=== PATIENT | male | born 1950 | race Caucasian/White ===

== ENCOUNTER 2023-02-10 14:27 | Observation (INO) | payer OTHER ==
[2023-02-10 15:05] LABS: Hematocrit 28.4 % (39.6-49.0); Lymphocytes % 39.5 % (15.3-44.8); MCV 76.9 fL (80-100); Platelets 98 thou/uL (152-406); RBC Red Blood Cell Count 3.69 M/uL (4.33-5.43)
[2023-02-10 15:06] LABS: Anisocytosis 1+; Blood Morphology Comment NOTED (NOT SEEN); Platelet Estimate DECR; White Blood Cell Scan OK (OK)
[2023-02-10 15:08] LABS: Protime INR 1.12
[2023-02-10 15:30] LABS: Albumin 2.7 g/dL (3.4-5.0); Bilirubin Direct 0.1 mg/dL (0-0.2); Bilirubin Indirect, Calculated 0.1 mg/dL (0.2-0.8); Bilirubin Total 0.2 mg/dL (0.2-1.0); Magnesium 1.7 mg/dL (1.6-2.4); Protein, Total 6.3 g/dL (6.4-8.2); Troponin High Sensitivity 6.8 pg/mL (<58.9)
--- NOTE | 2023-02-10 16:16 | RAD REPORT ---
EXAM DESCRIPTION: CT - Head Brain Wo Cont - 02/10/2023 3:56 pm CLINICAL HISTORY: CONFUSED COMPARISON: No comparisons TECHNIQUE: Noncontrast head CT images were obtained without IV contrast. Multiplanar reformats were generated and reviewed. All CT scans are performed using dose optimization technique as appropriate and may include automated exposure control or mA/KV adjustment according to patient size. FINDINGS: No intracranial hemorrhage, mass, or edema. Midline structures are unremarkable. Moderate to advanced diffuse parenchymal volume loss with proportionate prominence of the ventricles and sulci. Chi-white matter differentiation is preserved, without evidence of acute infarct. No abnormal extra- axial fluid collections. Mastoid air cells and visualized portions of the paranasal sinuses are clear. No acute bony findings. IMPRESSION: No evidence of an acute intracranial process. Moderate to advanced diffuse parenchymal volume loss.
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
--- NOTE | 2023-02-10 17:02 | ER ---
Nurse's Notes [facility] Name: Adeel Joy Age: 72 yrs Sex: Male : 1950 Arrival Date: 02/10/2023 Time: 14:27 Bed 3 Private MD: Diagnosis: Altered mental status, bradycardia, vascular disease left lower extremity Presentation: 02/10 14:30 Chief complaint: EMS states: toned out to [facility] for possible blot clot in left ld1 leg, altered mental status. Coronavirus screen: At this time, the client does not indicate any symptoms associated with coronavirus-19. Ebola Screen: No symptoms or risks identified at this time. Initial Sepsis Screen: Does the patient meet any 2 criteria? No. Patient's initial sepsis screen is negative. Does the patient have a suspected source of infection? No. Patient's initial sepsis screen is negative. Risk Assessment: Do you want to hurt yourself or someone else? Patient reports no desire to harm self or others. Onset of symptoms was February 10, 2023. 14:30 Method Of Arrival: [place] [facility] [place]1 14:30 Acuity: MARCO A 3 ld1 20:[address] Buitrago contacted regarding patient bradycardia diagnosis by Dr Juliano Buitrago kl agrees to see patient Dr Palomo notified. Triage Assessment: 14:31 General: Appears in no apparent distress. comfortable, Behavior is calm, appropriate ld1 for age, agitated. Pain: Denies pain. Pain: Unable to use pain scale. Does not appear to understand pain scale. EENT: No signs and/or symptoms were reported regarding the EENT system. Neuro: Level of Consciousness is awake, alert, obeys commands, Oriented to person, place, time, situation. Cardiovascular: Capillary refill < 3 seconds Patient's skin is warm and dry. Rhythm is sinus bradycardia. Respiratory: Airway is patent Respiratory effort is even, unlabored. GI: Abdomen is flat, non-distended. : No signs and/or symptoms were reported regarding the genitourinary system. Derm: Wound noted left leg. Musculoskeletal: No signs and/or symptoms reported regarding the musculoskeletal system. Historical: - Allergies: 14:31 No Known Allergies; ld1 - Home Meds: 14:31 Depakote Sprinkles 125 mg Oral Capsule, Delayed Release Sprinkle 6 caps every 12 hours ld1 [Active]; donepezil 5 mg oral tablet 1 tab every day at bedtime [Active]; melatonin 10 mg Oral tablet 1 tab once daily at bedtime [Active]; sertraline 100 mg oral tablet 1 tab twice a day [Active]; trazodone 50 mg Oral tablet 0.5 tabs [Active]; - PMHx: 14:31 Dementia; Osteoarthritis; Cellulitis; Hypertensive disorder; embolism; insomnia; ld1 - Immunization history:: Adult Immunizations up to date. - Social history:: Smoking status: Patient reports the use of cigarette tobacco products, Patient/guardian denies using alcohol. Screenin:38 [facility] ED Fall Risk Assessment (Adult) History of falling in the last 3 months, ld1 including since admission No falls in past 3 months (0 pts). Abuse screen: Denies threats or abuse. Denies injuries from another. Nutritional screening: No deficits noted. Tuberculosis screening: No symptoms or risk factors identified. Assessment: 14:38 Reassessment: See triage assessment. ld1 15:26 Reassessment: Patient appears in no apparent distress at this time. Patient and/or tm6 family updated on plan of care and expected duration. Pain level reassessed. 16:35 Reassessment: Patient appears in no apparent distress at this time. Patient and/or tm6 family updated on plan of care and expected duration. Pain level reassessed. General: Appears in no apparent distress. 18:06 Reassessment: Patient appears in no apparent distress at this time. Patient and/or tm6 family updated on plan of care and expected duration. Pain level reassessed. 19:05 Reassessment: Pt resting in bed, no s/s of pain or distress noted. at this time jb4 respirations are even and unlabored. 20:00 Reassessment: Patient appears in no apparent distress at this time. No changes from jb4 previously documented assessment. Patient and/or family updated on plan of care and expected duration. Pain level reassessed. 21:00 Reassessment: Patient appears in no apparent distress at this time. No changes from jb4 previously documented assessment. Patient and/or family updated on plan of care and expected duration. Pain level reassessed. Vital Signs: 14:30 BP 151 / 65; Pulse 51; Resp 18; Temp 98.3(TE); Pulse Ox 99% on R/A; Weight 77.5 kg; ld1 Height 6 ft. 1 in. ; Pain 0/10; 14:35 BP 159 / 49; Pulse 49; Resp 17; Temp 96.7(TE); Pulse Ox 100% on R/A; tm6 15:26 BP 150 / 54; Pulse 42; Resp 15; Pulse Ox 100% ; tm6 16:36 BP 149 / 44; Pulse 41; Resp 16; Pulse Ox 100% on R/A; tm6 17:32 BP 134 / 55; Pulse 36; Resp 12; Pulse Ox 94% on R/A; ld1 18:05 BP 150 / 46; Pulse 40; Resp 14; Pulse Ox 100% on R/A; tm6 19:05 BP 151 / 50; Pulse 97; Resp 13; Pulse Ox 97% on R/A; jb4 20:00 BP 130 / 5; Pulse 34; Resp 13; Pulse Ox 100% on R/A; jb4 20:46 Pulse 34; kl 21:23 BP 136 / 51; Pulse 34; Pulse Ox 100% on R/A; la4 21:45 Temp 97.8(TE); jb4 22:05 BP 132 / 52; Pulse 36; Resp 18; Pulse Ox 100% on R/A; Pain 0/10; la4 14:30 Body Mass Index 22.54 (77.50 kg, 185.42 cm) ld1 14:30 Pain Scale: Adult ld1 22:05 Pain Scale: Adult la4 Vitals: 14:35 Cardiac Rhythm Assessment Regular Sinus handy. tm6 16:36 Cardiac Rhythm Assessment Sinus handy. tm6 22:05 Cardiac Rhythm Assessment Regular Sinus handy. Cardiac Rhythm Assessment Regular Sinus la4 handy. Vincent Coma Score: 21:23 Eye Response: spontaneous(4). Motor Response: obeys commands(6). Verbal Response: la4 confused(4). Total: 14. 22:05 Eye Response: spontaneous(4). Motor Response: obeys commands(6). Verbal Response: la4 confused(4). Total: 14. ED Course: 14:28 Patient arrived in ED. ld1 14:29 Wally Henao MD is Attending Physician. sp3 14:31 Triage completed. ld1 14:31 Arm band placed on right wrist. EKG completed in triage. Results shown to MD. ld1 14:32 Conner Alcantara, RN is Primary Nurse. tm6 14:38 Patient has correct armband on for positive identification. Placed in gown. Bed in low ld1 position. Call light in reach. Side rails up X2. front desk monitor on. Pulse ox on. NIBP on. Door closed. Noise minimized. Warm blanket given. 14:38 No provider procedures requiring assistance completed. Maintain EMS IV. Dressing ld1 intact. Good blood return noted. Site clean \T\ dry. Gauge \T\ site: 22G LH \T\ 18G LAC. 15:58 CT Head Brain wo Cont In Process Unspecified. EDMS 16:05 Lower Ext Angio In Process Unspecified. EDMS 17:00 Mary Dolan MD is Hospitalizing Provider. sp3 17:02 Dental Equipment Mechanic paged at 17:02. em1 19:04 PO fluids given. tm6 19:04 Pillow given. Turned to right side. tm6 21:33 Provided Education on: plan of care. la4 22:07 Patient admitted, IV remains in place. la4 22:07 Chest Single View Sent. la4 Administered Medications: No medications were administered Medication: 21:33 VIS not applicable for this client. la4 Outcome: 17:01 Decision to Hospitalize by Provider. sp3 21:33 Condition: improved la4 22:06 Admitted to ICU accompanied by nurse, accompanied by bandar, via stretcher, room 4, on la4 monitor, with chart, 22:06 Instructed on follow up and referral plans. the need for admit, 22:27 Patient left the ED. jb4 Signatures: Dispatcher [employer] EDMS Radha Mcelroy, RN Ever De La Fuente em1 Best Carter RN RN jb4 Fela Aguilar RN RN ld1 Wally Henao MD MD sp3 Conner Alcantara, MIGUEL RIVERA tm6 Kan Forbes RN RN la4 Corrections: (The following items were deleted from the chart) 14:37 14:31 PMHx: hypotension; ld1 ld1
--- NOTE | 2023-02-10 17:02 | EDPHYS ---
Physician Documentation [facility] Name: Adeel Joy Age: 72 yrs Sex: Male : 1950 Arrival Date: 02/10/2023 Time: 14:27 Bed 3 Private MD: ED Physician Wally Henao HPI: 02/10 14:42 This 72 yrs old Male presents to ER via EMS with complaints of Altered Mental Status. sp3 14:42 72-year-old male with a history of prior atrial fibrillation, dementia, hypertension, sp3 among others now presents to the ED via EMS for chief complaint decreased pulses in the left lower extremity as noted by snf care team and physician. He also states that he is slightly more confused than he normally is. EMS found patient to have bradycardia at 32 bpm and they administered atropine raising heart rate to the mid 40s. History, physical and ROS is limited secondary to patient being none verbal and having dementia. No further history reported by EMS.. Historical: - Allergies: 14:31 No Known Allergies; ld1 - Home Meds: 14:31 Depakote Sprinkles 125 mg Oral Capsule, Delayed Release Sprinkle 6 caps every 12 hours ld1 [Active]; donepezil 5 mg oral tablet 1 tab every day at bedtime [Active]; melatonin 10 mg Oral tablet 1 tab once daily at bedtime [Active]; sertraline 100 mg oral tablet 1 tab twice a day [Active]; trazodone 50 mg Oral tablet 0.5 tabs [Active]; - PMHx: 14:31 Dementia; Osteoarthritis; Cellulitis; Hypertensive disorder; embolism; insomnia; ld1 - Immunization history:: Adult Immunizations up to date. - Social history:: Smoking status: Patient reports the use of cigarette tobacco products, Patient/guardian denies using alcohol. ROS: 14:43 Unable to obtain ROS due to baseline dementia, sp3 Exam: 14:43 Head/Face: Normocephalic, atraumatic. Eyes: Pupils equal round and reactive to light, sp3 extra-ocular motions intact. Lids and lashes normal. Conjunctiva and sclera are non-icteric and not injected. Cornea within normal limits. Periorbital areas with no swelling, redness, or edema. Neck: Trachea midline, no thyromegaly or masses palpated, and no cervical lymphadenopathy. Supple, full range of motion without nuchal rigidity, or vertebral point tenderness. No Meningismus. Chest/axilla: Normal chest wall appearance and motion. Nontender with no deformity. No lesions are appreciated. Respiratory: Lungs have equal breath sounds bilaterally, clear to auscultation and percussion. No rales, rhonchi or wheezes noted. No increased work of breathing, no retractions or nasal flaring. Abdomen/GI: Soft, non-tender, with normal bowel sounds. No distension or tympany. No guarding or rebound. No evidence of tenderness throughout. 14:43 Cardiovascular: Heart rate irregular. Pulses able to be palpated in the plantar section of the left lower extremity. Patient has had prior vascular occlusion in that extremity. Poor skin condition of bilateral lower extremities. Cap refill not able to be obtained secondary to poor nail condition. Range of motion not fully tested., 14:46 ECG was reviewed by the Attending Physician. EKG demonstrates sinus bradycardia with sp3 arrhythmia with a rate of 49 with normal intervals, leftward axis poor R wave progression and nonspecific diffuse ST/T changes without evidence of acute ischemia. Vital Signs: 14:30 BP 151 / 65; Pulse 51; Resp 18; Temp 98.3(TE); Pulse Ox 99% on R/A; Weight 77.5 kg; ld1 Height 6 ft. 1 in. ; Pain 0/10; 14:35 BP 159 / 49; Pulse 49; Resp 17; Temp 96.7(TE); Pulse Ox 100% on R/A; tm6 15:26 BP 150 / 54; Pulse 42; Resp 15; Pulse Ox 100% ; tm6 16:36 BP 149 / 44; Pulse 41; Resp 16; Pulse Ox 100% on R/A; tm6 17:32 BP 134 / 55; Pulse 36; Resp 12; Pulse Ox 94% on R/A; ld1 18:05 BP 150 / 46; Pulse 40; Resp 14; Pulse Ox 100% on R/A; tm6 19:05 BP 151 / 50; Pulse 97; Resp 13; Pulse Ox 97% on R/A; jb4 20:00 BP 130 / 5; Pulse 34; Resp 13; Pulse Ox 100% on R/A; jb4 20:46 Pulse 34; kl 21:23 BP 136 / 51; Pulse 34; Pulse Ox 100% on R/A; la4 21:45 Temp 97.8(TE); jb4 22:05 BP 132 / 52; Pulse 36; Resp 18; Pulse Ox 100% on R/A; Pain 0/10; la4 14:30 Body Mass Index 22.54 (77.50 kg, 185.42 cm) ld1 14:30 Pain Scale: Adult ld1 22:05 Pain Scale: Adult la4 Vincent Coma Score: 21:23 Eye Response: spontaneous(4). Motor Response: obeys commands(6). Verbal Response: la4 confused(4). Total: 14. 22:05 Eye Response: spontaneous(4). Motor Response: obeys commands(6). Verbal Response: la4 confused(4). Total: 14. MDM: 14:30 Patient medically screened. sp3 14:44 Data reviewed: vital signs, nurses notes, EMS record, snf records, lab test sp3 result(s), radiologic studies. ED course: 72-year-old male presents with left lower extremity decreased pulses and altered mental status. I am not aware of either baseline therefore will make the assumption that both are correct. Work-up will include laboratory values, CT scan of the head, CT angiogram of the left lower extremity and general laboratory work-up. Cardiac evaluation will also need to be obtained secondary to bradycardia. I will also review medications to see if there is a medicinal etiology to his symptoms. Patient will be admitted regardless to hospitalist service for observation and further elucidation of his symptoms. Possible transfer if fresh obstruction is noted on the angiogram.. 16:59 ED course: CT demonstrates patent chronic changes of the left lower extremity. CT scan sp3 of the head is negative. Troponin is negative. We will place patient in observation for cardiac rule out and continued monitoring.. 02/10 14:32 Order name: Basic Metabolic Panel; Complete Time: 15:33 sp3 02/10 14:32 Order name: CBC with Diff; Complete Time: 15:33 sp3 02/10 14:32 Order name: LFT's; Complete Time: 15:33 sp3 02/10 14:32 Order name: Magnesium; Complete Time: 15:33 sp3 02/10 14:32 Order name: PT-INR; Complete Time: 15:33 sp3 02/10 14:32 Order name: Troponin HS; Complete Time: 15:33 sp3 11/02 15:07 Order name: CBC Smear Scan; Complete Time: 15:33 EDMS 02/10 21:17 Order name: CBC with Automated Diff EDMS 02/10 21:17 Order name: CBC with Automated Diff EDMS 02/10 21:17 Order name: Comprehensive Metabolic Panel EDMS 02/10 21:17 Order name: Comprehensive Metabolic Panel EDMS 02/10 21:17 Order name: Lipid Profile EDMS 02/10 21:17 Order name: Lipid Profile EDMS 02/10 21:17 Order name: Troponin High Sensitivity EDMS 02/10 21:17 Order name: Troponin High Sensitivity EDMS 02/10 21:17 Order name: Troponin High Sensitivity EDMS 02/10 21:17 Order name: Troponin High Sensitivity EDMS 02/10 21:19 Order name: Cortisol EDNH 02/10 21:19 Order name: D-Dimer EDMS 02/10 21:19 Order name: Thyroid Stimulating Hormone EDMS 02/10 14:38 Order name: Lower Ext Angio; Complete Time: 16:56 EDMS 02/10 14:41 Order name: CT Head Brain wo Cont; Complete Time: 16:56 sp3 02/10 21:20 Order name: Chest Single View EDNH 02/10 14:32 Order name: EKG; Complete Time: 14:33 sp3 02/10 21:14 Order name: Social Service Consult EDNH 02/10 14:32 Order name: Cardiac monitoring; Complete Time: 14:33 sp3 02/10 14:32 Order name: EKG - Nurse/Tech; Complete Time: 14:33 sp3 02/10 14:32 Order name: IV Saline Lock; Complete Time: 14:40 sp3 02/10 14:32 Order name: Labs collected and sent; Complete Time: 14:49 sp3 02/10 14:32 Order name: O2 Per Protocol; Complete Time: 14:32 sp3 02/10 14:32 Order name: O2 Sat Monitoring; Complete Time: 14:32 sp3 Administered Medications: No medications were administered Disposition Summary: 02/10/23 17:01 Hospitalization Ordered Notes: Hospitalization Status: Observation sp3 Provider: Mary Dolan sp3 Condition: Stable sp3 Problem: an acute exacerbation sp3 Symptoms: are unchanged sp3 Bed/Room Type: Standard sp3 Location: Intensive Care Unit(02/10/23 21:30) mw Room Assignment: 4-(02/10/23 21:30) mw Diagnosis - Altered mental status, bradycardia, vascular disease left lower extremity sp3 Forms: - Medication Reconciliation Form sp3 - SBAR form sp3 - Leadership Thank You Letter sp3 Signatures: Dispatcher [employer] EDCecelia Beard RN RN mw Fela Aguilar RN RN ld1 Wally Henao MD MD sp3 Corrections: (The following items were deleted from the chart) 14:37 14:31 PMHx: hypotension; ld1 ld1 21:30 17:01 Telemetry/MedSurg (observation) sp3 mw 21:30 17:01 sp3 mw
[2023-02-10] MEDS ORDERED: ALBUTEROL 2.5 MG/3 ML NEB SOL NEB PRN (21:12)
[2023-02-10] MEDS ORDERED: ONDANSETRON 4 MG/2 ML VIAL IV PRN (21:12)
[2023-02-10] MEDS ORDERED: ACETAMINOPHEN 500 MG TAB PO PRN (21:12)
--- NOTE | 2023-02-10 21:12 | P.HP ---
Certification for Inpatient Patient admitted to: Inpatient With expected LOS: >2 Midnights Patient will require the following post-hospital care: Long Term Practitioner: I am a practitioner with admitting privileges, knowledge of patient current condition, hospital course, and medical plan of care. Services: Services provided to patient in accordance with Admission requirements found in Title 42 Section 412.3 of the Code of Federal Regulations Patient History Date of Service: 02/10/23 Reason for admission: generalised weakness History of Present Illness: 72 yrs old Male with past medical history of history of atrial fibrillation, dementia, hypertension , Anemia , Anxiety presents to ER via EMS with complaints of Altered Mental Status and decreased pulses in the left lower extremity as noted by long-term care team and physician. He also states that he is slightly more confused than he normally is. EMS found patient to have handy cardia at 32 bpm and they administered atropine raising heart rate to the mid 40s. History, physical and ROS is limited secondary to patient being none verbal and having dementia. Denies any chest pain or SOB .No fever or chills . Denies any nausea or vomiting Patient was assessed in the ER and noted to have severe bradycardia to the rate of 33-45 and is being admitted for closer monitoring . ER MD already discussed the case with chuck [facility]er Cardiology who recommended conservative management . .. Allergies No Known Allergies Allergy (Unverified 02/10/23 14:34) Home medications list reviewed: Yes - Past Medical/Surgical History Past Medical History: Reviewed- Non-Contributory -: dementia, htn,hld, anxiety, Atrial fibrillation -: OA,Anemia Past Surgical History: Unable to obtain - Family History Family History: Reviewed- Non-Contributory - Social History Smoking Status: Unknown if ever smoked Review of Systems is unable to be obtained Physical Examination - Vital Signs Temperature: 98.2 F Blood Pressure: 130/78 Pulse: 38 Respirations: 18 Pulse Ox (%): 98 - Physical Exam General: Alert, Demented, Confused HEENT: Atraumatic, Normocephalic Neck: Supple Respiratory: Clear to auscultation bilaterally, Normal air movement Cardiovascular: Irregular heart rate/rhythm (Bradycardia ), Systolic murmur Capillary refill: <2 Seconds Gastrointestinal: Normal bowel sounds, Soft and benign Musculoskeletal: No clubbing, No swelling Integumentary: No rashes Neurological: Sensation intact, Normal reflexes 2+ Lymphatics: No axilla or inguinal lymphadenopathy - Studies Laboratory Data (last 24 hrs) 02/10/23 02/10/23 02/10/23 14:42 14:42 14:42 WBC 5.10 Hgb 9.0 L Hct 28.4 L Plt Count 98 L PT 12.3 INR 1.12 Sodium 144 Potassium 4.0 BUN 28 H Creatinine 0.92 Glucose 91 Magnesium 1.7 Total Bilirubin 0.2 AST 12 L ALT 19 Alkaline Phosphatase 54 Assessment and Plan - Problems (Diagnosis) (1) Bradycardia Current Visit: Yes Status: Acute Plan: Monitor closely on telemetry in ICU Patient noted to be in bradycardic 30s to 40s We will get a TSH level We will also get a cortisol level as well We will hold off starting on dopamine drip Cardiology has already been consulted by ER MD As per ER MD cardiology recommended conservative management No plan of pacemaker as the patient has advanced dementia (2) Peripheral vascular disease Current Visit: Yes Status: Acute Plan: Patient initially was sent to the ER as long-term staff noted decreased blood flow to the limbs CTA findings noted Started on aspirin and statin Chronic changes noted Monitor closely (3) Hypertension Current Visit: Yes Status: Chronic Plan: Monitor closely on telemetry Antihypertensives titrated We will hold AV mendez blockers or beta-blockers (4) Hyperlipidemia Current Visit: Yes Status: Chronic Plan: Monitor closely on telemetry Antihypertensives titrated We will hold AV mendez blockers or beta-blockers (5) H/O atrial fibrillation without current medication Current Visit: Yes Status: Chronic Plan: Patient has a previous history of chronic atrial fibrillation Monitor closely under telemetry Cardiology evaluation in a.m. We will get an echocardiogram (6) Dementia Current Visit: Yes Status: Chronic Plan: Patient has advanced dementia Supportive measures for now Continue home medication Anemia of chronic disease Monitor CBC daily Transfuse as needed GI/DVT prophylaxis Advanced directive full code for now Discharge Plan: Home Plan to discharge in: 48 Hours - Advance Directives Does patient have a Living Will: No Does patient have a Durable POA for Healthcare: No - Code Status/Comfort Care Code Status: Full Code Physician Review: Patient Assessed, Agree with Above Assessment and Plan Time Spent Managing Pts Care (In Minutes): 48
[2023-02-10] MEDS ORDERED: NA CHLORIDE 0.9% 1,000 ML IV SCH (22:00)
[2023-02-10 22:12] LABS: Thyroid Stimulating Hormone 1.96 uIU/mL (0.358-3.740); Troponin High Sensitivity 8.1 pg/mL (<58.9)
[2023-02-11 00:31] VITALS: TEMP 97
[2023-02-11 01:35] VITALS: O2SAT 99
[2023-02-11] MEDS: IPRATROPIUM BROM 0.5MG/2.5ML NEB SCH ×2 (02:00→08:49)
[2023-02-11 05:23] LABS: Absolute Lymphocytes (CBC) 1.8 K/uL (0.7-4.9); Hematocrit 29.2 % (39.6-49.0); MCV 76.7 fL (80-100); Platelets 85 thou/uL (152-406)
[2023-02-11 05:50] LABS: Albumin 2.6 g/dL (3.4-5.0); Bilirubin Total 0.3 mg/dL (0.2-1.0); Potassium 3.8 mEq/L (3.5-5.1); Protein, Total 5.9 g/dL (6.4-8.2); Troponin High Sensitivity 8.9 pg/mL (<58.9)
[2023-02-11 06:35] VITALS: BMI 21.2
[2023-02-11] MEDS ORDERED: LEVOTHYROXINE SODIUM 100 MCG VIAL IV ONE (10:00)
--- NOTE | 2023-02-11 10:30 | P.DS ---
Discharge Date: 02/11/23 Disposition: TRANSFER TO [facility] Discharge Condition: GOOD Reason for Admission: Generalized weakness Brief History of Present Illness: Patient is a 72-year-old gentleman with past medical history of history of atrial fibrillation, dementia, hypertension , Anemia , Anxiety presents to ER via EMS with complaints of Altered Mental Status and decreased pulses in the left lower extremity as noted by residential care team and physician. He also states that he is slightly more confused than he normally is. EMS found patient to have bradycardia at 32 bpm and they administered atropine raising heart rate to the mid 40s. However, patient with sinus bradycardia and normal blood pressure. History, physical and ROS is limited secondary to patient being none verbal and having dementia. Denies any chest pain or SOB .No fever or chills . Denies any nausea or vomiting Patient was assessed in the ER and noted to have severe bradycardia to the rate of 33-45 and is being admitted for closer monitoring . ER MD already discussed the case with patient observation assistant Cardiology who recommended conservative management . Hospital Course: Patient is free T4 was low. We started patient on Synthroid. Patient is otherwise clinically doing well with no new complaints. At this time, patient is doing well and stable for discharge back to [facility]. Spoke with cardiology and no further cardiac interventions. Vital Signs/Physical Exam: Temp Pulse Resp BP Pulse Ox 97 F 37 L 14 129/62 97 02/11/23 08:00 02/11/23 10:00 02/11/23 10:00 02/11/23 10:00 02/11/23 10:00 General: Alert, In no apparent distress, Oriented x1, Demented Laboratory Data at Discharge: WBC 4.90 thou/uL (4.3-10.9) 02/11/23 04:58 Hgb 9.2 g/dL (13.6-17.9) L 02/11/23 04:58 Hct 29.2 % (39.6-49.0) L 02/11/23 04:58 Plt Count 85 thou/uL (152-406) L 02/11/23 04:58 PT 12.3 SECONDS (9.5-12.5) 02/10/23 14:42 INR 1.12 02/10/23 14:42 Sodium 139 mEq/L (136-145) D 02/11/23 04:58 Potassium 3.8 mEq/L (3.5-5.1) 02/11/23 04:58 BUN 22 mg/dL (7-18) H 02/11/23 04:58 Creatinine 0.73 mg/dL (0.70-1.30) 02/11/23 04:58 Glucose 71 mg/dL (74-106) L 02/11/23 04:58 Magnesium 1.7 mg/dL (1.6-2.4) 02/10/23 14:42 Total Bilirubin 0.3 mg/dL (0.2-1.0) 02/11/23 04:58 AST 14 U/L (15-37) L 02/11/23 04:58 ALT 17 U/L (16-61) 02/11/23 04:58 Alkaline Phosphatase 49 U/L (45-117) 02/11/23 04:58 Triglycerides 61 mg/dL (<150) 02/11/23 04:58 Cholesterol 115 mg/dL (<200) 02/11/23 04:58 HDL Cholesterol 59 mg/dL (40-60) 02/11/23 04:58 Cholesterol/HDL Ratio 1.95 02/11/23 04:58 Home Medications: Acetaminophen [Tylenol] 2 tab PO Q6HP PRN 02/10/23 Ascorbic Acid 500 mg PO DAILY 02/10/23 Cholecalciferol (Vitamin D3) [Vitamin D 5,000 IU Cap*] 1 cap PO DAILY 02/10/23 Cranberry Conc/C/Bacill Coag [Cranberry Tablet] 1 tab PO DAILY 02/10/23 Cyanocobalamin [Vitamin B-12*] 1 tab PO DAILY 02/10/23 Diclofenac Sodium [Arthritis Pain Reliever] 50 gm TP BID 02/10/23 Divalproex [Depakote Sprinkle*] 6 cap PO BID 02/10/23 Donepezil HCl 5 mg PO BEDTIME 02/10/23 Donepezil HCl 10 mg PO BEDTIME 02/10/23 Doxycycline Monohydrate 100 mg PO BID 02/10/23 Ferrous Sulfate [Ferrous Sulfate Elixir*] 7.5 ml PO DAILY 02/10/23 Melatonin 5 mg PO BEDTIME 02/10/23 Multivitamin 1 tab PO DAILY 02/10/23 Sertraline HCl 1 tab PO DAILY 02/10/23 Sertraline HCl 100 mg PO DAILY 02/10/23 Trazodone HCl 25 mg PO Q6H PRN 02/10/23 Levothyroxine [Synthroid] 125 mcg PO [id number] #30 tab 02/11/23 New Medications: Levothyroxine [Synthroid] 125 mcg PO [id number] #30 tab Physician Discharge Instructions: -DC IV and DC home -Follow-up with PCP in 1 to 2 weeks -Follow-up with Cardiology in 1 to 2 weeks -Please call Dr. Dolan at [phone] if any questions regarding hospital stay -Please call nursing station at [phone] if any nursing or medication questions -Return to the emergency room if symptoms worsen Diet: AHA Activity: Fall precautions Followup: Sage Dinero MD [Primary Care Provider] - Time spent managing pt's care (in minutes): 35
[2023-02-11 11:27] VITALS: BP 54/52
--- NOTE | 2023-02-14 08:33 | ECHO ---
HEIGHT: 6 ft 1 in WEIGHT: 160 lb 14.999 oz DATE OF STUDY: 02/11/[address]: Mary Dolan MD 2-DIMENSIONAL: YES M.MODE: YES DOPPLER: YES COLOR FLOW: YES TDS: YES PORTABLE: YES DEFINITY: BUBBLE STUDY: DIAGNOSIS: BRADYCARDIA CARDIAC HISTORY: CATHERIZATION: SURGERY: PROSTHETIC VALVE: PACEMAKER: MEASUREMENTS (cm) DIASTOLIC (NORMALS) SYSTOLIC (NORMALS) IVSd 1.0 (0.6-1.2) LA Diam 2.7 (1.9-4.0) LVEF 49% LVIDd 3.1 (3.5-5.7) LVIDs 2.4 (2.0-3.5) %FS 24% LVPWd 1.1 (0.6-1.2) Ao Diam 2.6 (2.0-3.7) 2 DIMENSIONAL ASSESSMENT: RIGHT ATRIUM: LEFT ATRIUM: RIGHT VENTRICLE: LEFT VENTRICLE: TRICUSPID VALVE: MITRAL VALVE: PULMONIC VALVE: AORTIC VALVE: PERICARDIAL EFFUSION: AORTIC ROOT: LEFT VENTRICULAR WALL MOTION: DOPPLER/COLOR FLOW: COMMENTS: 1. POOR WINDOWS 2. UNABLE TO EVALUATE THIS ECHOCARDIOGRAM DUE TO POOR WINDOWS TECHNOLOGIST: RAMIRO PILLAI
== END 2023-02-11 11:35 ==
LOC: ER 14:27 → 3RD-ICU 21:48 → INTOOBSV 21:48
PROVIDERS: ADMIT Family Medicine; ATTEND Hospitalist
DX: R00.1 Bradycardia, unspecified (principal); R94.6 Abnormal results of thyroid function studies; I48.11 Longstanding persistent atrial fibrillation; F03.90 Unspecified dementia, unspecified severity, without behavioral disturbance, psychotic disturbance, mood disturbance, and anxiety; I10 Essential (primary) hypertension; D64.9 Anemia, unspecified; F41.9 Anxiety disorder, unspecified; R41.82 Altered mental status, unspecified; I73.9 Peripheral vascular disease, unspecified; E78.5 Hyperlipidemia, unspecified; D63.1 Anemia in chronic kidney disease; N18.9 Chronic kidney disease, unspecified; Z79.82 Long term (current) use of aspirin
CPT/HCPCS: 93005 ×2; 93306; 85025 ×2; 80048; 36415; 83735; 85610; 80061; 85379; 80076; 84443; 84484 ×3; 84439; 80053; 82533; 70450; 73706; 94640; 99285; Q9967; J7644; J7030; G0378 ×3